=== PATIENT | male | born 1975 | race Caucasian/White ===

== ENCOUNTER 2017-04-07 14:39 | Emergency (ER) | payer SELFPAY ==
[~2017-04-07] VITALS: Ht 170.2 cm; Wt 62.0 kg
[~2017-04-07 14:39] MED LIST: CARB100 PO; DIAZ5 PO
[2017-04-07 16:29] VITALS: BP 142/95
[2017-04-07] MEDS ORDERED: AZITHROMYCIN 250 MG TABLET PO ONE (16:30)
[2017-04-07] MEDS ORDERED: CLOTRIMAZOLE 1% 15 GM CREAM TP ONE (16:30)
== END 2017-04-07 17:05 | disposition home or self-care (01) ==
LOC: EMS 15:07
DX: N48.1 Balanitis (principal); Z20.2 Contact with and (suspected) exposure to infections with a predominantly sexual mode of transmission
CPT/HCPCS: 99283

== ENCOUNTER 2017-06-08 23:39 | Emergency (ER) | payer MEDICAID ==
[~2017-06-08] VITALS: Ht 170.2 cm; Wt 68.0 kg
[2017-06-09 01:46] LABS: APPEARANCE,URINE CLOUDY (CLEAR); BILIRUBIN,URINE NEGATIVE (NEGATIVE); GLUCOSE, URINE (UA) NEGATIVE (NEGATIVE); KETONES,URINE NEGATIVE (NEGATIVE); LEUKOCYTE ESTERASE ,URINE MODERATE (NEGATIVE); NITRATE,URINE NEGATIVE (NEGATIVE); OCCULT BLOOD,URINE NEGATIVE (NEGATIVE); PROTEIN,URINE TRACE (NEGATIVE); UROBILINOGEN,URINE 0.2 mg/dL (<=1.0)
[2017-06-09 03:00] LABS: RBC,URINE 0-2 /HPF (0-2)
[2017-06-09 03:01] LABS: BACTERIA,URINE Few /HPF (None Seen); YEAST,URINE Moderate /HPF (None Seen)
[2017-06-09] MEDS ORDERED: LIDOCAINE HCL/PF 1% 2 ML VIAL IM ONE (03:15)
[2017-06-09] MEDS ORDERED: CefTRIAXone SODIUM 1 GM/VIAL IM ONE (03:15)
[2017-06-09 04:12] VITALS: BP 122/80
== END 2017-06-09 04:43 | disposition home or self-care (01) ==
LOC: EMS 23:40
DX: N34.2 Other urethritis (principal); Z88.0 Allergy status to penicillin
CPT/HCPCS: 81001; 87086; 87491; 87591; 96372; 99284; J0696; J3490

== ENCOUNTER 2023-05-15 13:14 | Emergency (ER) | payer MEDICAID ==
[~2023-05-15] VITALS: Ht 170.2 cm; Wt 78.6 kg
[~2023-05-15 13:14] MED LIST changes: +ACYC200C24 PO; -CARB100 PO; -DIAZ5 PO; +DOXY-354 PO; +METR500 PO
[2023-05-15 13:26] VITALS: BP 126/105; PULSE 117; RESP 16; TEMP 98
[2023-05-15] MEDS ORDERED: DOXY-354 PO (16:52)
[2023-05-15] MEDS ORDERED: IBUP-1554 PO (16:52)
[2023-05-15] MEDS ORDERED: ACET-2080 PO (16:52)
[2023-05-15] MEDS ORDERED: CEPH-558 PO (16:52)
== END 2023-05-15 17:24 | disposition home or self-care (01) ==
LOC: EMS 13:14
DX: L03.115 Cellulitis of right lower limb (principal); K40.90 Unilateral inguinal hernia, without obstruction or gangrene, not specified as recurrent; F15.90 Other stimulant use, unspecified, uncomplicated; F14.90 Cocaine use, unspecified, uncomplicated; Z88.0 Allergy status to penicillin
CPT/HCPCS: 99283